=== PATIENT | female | born 1990 | race Caucasian/White ===

== ENCOUNTER 2018-02-14 09:03 | Emergency (ER) | payer MEDICAID, SELFPAY ==
[2018-02-14 09:04] VITALS: BP 141/91; PULSE 112; RESP 18; TEMP 38.2; O2SAT 99; BMI 28.5
--- NOTE | 2018-02-14 09:23 | ED.DCSUM_ITS ---
- ER Visit Summary Date of Service: 02/14/18 Chief Complaint: Fever, ear pain History of Present Illness: The patient is a 28 F who woke this morning with body aches, bilateral ear pain, fever to 102. Patient did not yet take anything for fever. She states she felt fine yesterday. She does complain of mild sore throat. She denies cough. She denies abdominal pain but has had some mild nausea. No vomiting or diarrhea. Physical Examination: Blood pressure is 141/91, temperature 100.8 TA, heart rate 112, respiratory rate 18, pulse ox 99% on room air. Patient's lying in bed in no acute distress. She appears ill but not toxic. Head neck examination feels TMs to be dull bilaterally. She has 1+ tonsils with mild posterior pharyngeal drainage. She is a strong voice and is tolerating secretions well. She has no meningismus. Heart is regular rate and rhythm. Lung sounds are clear. Abdomen is soft nontender. Skin examination reveals no rash or lesions. Test Results: Rapid influenza swab is negative. Rapid strep is positive. Emergency Department Course and Treatment: Patient was initially given Naprosyn and Zofran p.o. She vomited the medications up shortly after taking them. She was then given Toradol IM, Zofran IM, and Fioricet. She states she normally takes Excedrin for headaches. Test results were discussed with the patient. She is elected for Bicillin LA injection rather than oral antibiotics. Patient be discharged with prescription for Zofran ODT. Treatment Plan: [] Disposition: Discharge Impression: Strep pharyngitis This note was generated with [employer] dictation software. It may contain incorrect words, spelling, and punctuation that were not noted in review of the chart prior to signing ED Disposition - Plan for ED Patient: Chief Complaint: Fever Referrals: Care Physician,No Primary [Primary Care Provider] -
[2018-02-14] MEDS: Naproxen 500 MG Tablet PO (09:42)
[2018-02-14] MEDS: Ondansetron ODT 4 MG Tablet PO (09:42)
[2018-02-14] MEDS: Ketorolac 60 MG/2 ML Vial IM (10:29)
[2018-02-14] MEDS: Ondansetron 4 MG/2 ML Vial IM (10:30)
[2018-02-14] MEDS: Penicillin G Benzathine 1.2 MU/2 ML Syringe IM (11:49)
--- NOTE | 2018-02-14 12:07 | ED.DEP ---
ED Disposition - Plan for ED Patient: Disposition: Home or Assisted Living Chief Complaint: Fever Instructions: ED Strep Pharyngitis Conf Prescriptions: Ondansetron [Zofran Odt] 4 mg PO Q8H PRN PRN #10 tablet PRN Reason: Nausea Referrals: Agapito Cohen DO [STAFF PHYSICIAN] - As Needed
[2018-02-14] MEDS: Acetaminophen/Butalbital/Caffe 1 Tablet 2 TABLET PO (12:14)
[2018-02-14 13:28] VITALS: BP 119/78; PULSE 81; RESP 18; O2SAT 100
== END 2018-02-14 13:30 | disposition home or self-care (01) ==
PROVIDERS: Emergency Provider Emergency Medicine
DX: J02.0 Streptococcal pharyngitis (principal)
CPT/HCPCS: 87804; 87880; 96372; 99283; J2405

== ENCOUNTER 2019-03-01 19:14 | Observation (INO) | payer MEDICAID, SELFPAY ==
[2019-03-01 19:14] VITALS: BP 126/86; PULSE 82; RESP 16; TEMP 36.9; O2SAT 99; BMI 33.2
[2019-03-01 20:21] LABS: Absolute Lymphocyte Count 1.58 X10^3/ul (0.83-4.51); Basophil# 0.02 X10^3/uL; Basophil% 0.2 % (0-1); Eosinophil# 0.12 X10^3/uL; Eosinophils% 1.1 % (0-5); Hematocrit 33.4 % (37-47); Lymphocyte # 1.58 X10^3/ul (4.0); Lymphocyte % 15.1 % (19-41); Mean Corp Hgb Conc 32.9 g/gl (32-36); Mean Corpuscular Hgb 26.3 pg (27.0-32.0); Mean Corpuscular Volume 79.7 fL (81-99); Mean Platelet Vol. 11.4 fl (6.2-12.0); Monocyte# 0.67 X10^3/uL; Monocyte% 6.4 % (0-10); Neutrophil # 8.03 X10^3/uL (2.7-7.7); Platelet Count 253 K/mm3 (150-450); RBC Distribution Width CV 14.7 % (11.6-14.6); RBC Distribution Width SD 42.4 fl (35.1-43.9); Red Blood Count 4.19 M/mm3 (4.2-5.4); White Blood Count 10.4 K/mm3 (4.4-11.0)
[2019-03-01 20:22] LABS: POSITIVE COUNT NO; POSITIVE DIFFERENTIAL NO; POSITIVE MORPHOLOGY NO
[2019-03-01 20:23] LABS: Bacteria 0 SEEN /hpf (None Seen); Mucous, Urine 0 SEEN /hpf (<or=2+); Red Blood Cells-Urine 0 SEEN /hpf (0-5); White Blood Cells 0 SEEN /hpf (0-5)
[2019-03-01 20:24] LABS: Internal QC Validated? YES +Cl - CLEAR BKGD; Pregnancy, Serum, hCG Quali. NEGATIVE Negative
[2019-03-01 20:25] LABS: Color, Urine Straw (Yellow); Glucose, Dipstick Normal (Normal); Ketone-Dipstick Negative (Negative); Leukocyte Esterase-Dipstick Negative /ul (Negative); Nitrite-Dipstick Negative (Negative); Occult Blood-Urine Negative /ul (Negative); Protein-Dipstick Negative (Negative); Specific Gravity, Urine 1.005 (1.002-1.030); Urine Bilirubin Dipstick Negative (Negative); Urine Clarity Clear (Clear); Urine Urobilinogen Normal (Normal); Urine pH 6.5 (5.0 - 8.0)
[2019-03-01 20:30] LABS: Anion Gap 6 (5-15); BUN 19 mg/dL (7-18); BUN/Creat Ratio 20.8 RATIO (10-20); Calcium,Total 8.9 mg/dL (8.5-10.1); Chloride 104 mmol/L (98-107); Creatinine, Serum 0.91 mg/dL (0.55-1.02); EST Glomerular Filtration Rate 79 mL/min (>60); Est Glom Filt Rate - Afr Amer 95 mL/min (>60); Glucose 80 mg/dL (74-106); Potassium 3.4 mmol/L (3.5-5.1); Sodium Level 138 mmol/L (136-145)
[2019-03-01 20:32] LABS: Squamous Epithelial Cells - UA 0-5 SEEN /hpf (5-10)
--- NOTE | 2019-03-01 20:50 | CT_ITS ---
STUDY: CT ABDOMEN AND PELVIS WITH CONTRAST REASON FOR EXAM: Female, 29 years old. Right lower quadrant pain since this a.m. RADIATION DOSAGE (If Supplied By Facility): CTDIvol = ( 11.45 ) mGy, DLP = ( 623.63 ) mGycm TECHNIQUE: Transaxial images were obtained from the dome of the diaphragm to the symphysis pubis without oral contrast. 100ML IV Isovue 300 was administered. Sagittal and coronal images were reconstructed. Individualized dose optimization techniques were used for this CT. COMPARISON: None. FINDINGS: The visualized lung bases are unremarkable. The visualized portions of the heart are within normal limits. Normal liver. Normal gallbladder and extrahepatic biliary system. Normal spleen. Normal pancreas. Normal bilateral adrenal glands. Normal right kidney. Normal left kidney. Normal visualized stomach. Normal small intestine. Normal colon. There is a tubular, thick-walled appendix (>7mm) (series 601 image 37)., consistent with acute appendicitis. Normal abdominal aorta. Normal inferior vena cava. Normal retroperitoneum. Normal urinary bladder. Normal visualized uterus and retroflexed.. There is a small umbilical hernia containing fat. Normal osseous structures. CT/Abdomen/Pelvis W IV Cont ONLY IMPRESSION: 1. There is a dilated appearance of the appendix measuring greater than 7 mm with no evidence of surrounding abscess concerning for early acute appendicitis in the appropriate clinical setting. Recommend general surgery consultation for further assessment and management. N.B. : The above information has been verbally conveyed by Gamaliel Bruno DO to Aashish Vidal MD, on 03/01/2019 21:42:36 (ET). Electronically Signed: Gamaliel Bruno DO at 21:43 EDT , Service support ,
--- NOTE | 2019-03-01 21:21 | ED.VIS.GEN ---
History of Present Illness Chief Complaint: Abd Pain Informant: Patient Narrative: Right-sided abdominal pain after awakening 7 AM this morning. However pain worsened over the past 5 6 hours. Decreased appetite. No vomiting or diarrhea. Patient does have history of constipation normal bowel moods every 3 to 4 days. States she had a normal bowel movement yesterday. Last menstrual period 2 weeks ago. No fevers. Patient drove herself here states car ride made it worse. Movement makes it worse. No history of ovarian cysts. Prior similar symptoms: No Past Medical History - Allergies and Home Meds Allergies/Adverse Reactions: Allergies No Known Allergies Allergy (Verified 03/01/19 19:16) Smoking Status: Never smoker Review of Systems General: Denies: Chills, Fever, Sweats Eyes: Denies: Visual changes - bilaterally, Diplopia ENT: Denies: Rhinorrhea, Sore throat Cardiovascular: Denies: Chest pain, Palpitations Respiratory: Denies: Dyspnea, Cough, Dyspnea on exertion Gastrointestinal: Reports: Abdominal pain. Denies: Nausea, Vomiting, Diarrhea, Melena, Hematochezia Genitourinary: Denies: Dysuria, Hematuria, Frequency Musculoskeletal: Denies: Back pain, Extremity Pain Skin: Denies: Rash, Wounds Neurological: Denies: Headache, Weakness, Numbness Physical Exam Vital Signs/Narrative: Vital Signs Temp Pulse Resp BP Pulse Ox 03/01/19 19:14 98.4 F 82 16 126/86 H 99 Inital Vital Signs reviewed: Yes General: Well nourished, Well developed, No Acute Distress Head: Normocephalic, Atraumatic Eyes: Perrl, EOMI ENT: Moist mucous membranes, No rhinorrhea Neck: Supple, Nontender Cardiovascular: Regular rate, Regular rhythm, No murmurs Respiratory: No distress, CTA bilaterally, Chest nontender Abdomen: Soft, Nondistended, Normal bowel sounds, Guarding, Rebound tenderness, - - Negative Davis's, positive McBurney's. Back: Nontender, Normal Inspection Extremities: Nontender, No edema Skin: Normal color, No rash Neurological: Alert, Oriented x3, Cranial nerves II-XII grossly intact, Normal Strength, Normal Sensation Psychological: Normal affect, Normal Mood Diagnostic/Tx/Re-eval CT abdomen pelvis with IV contrast: Discussed with radiology report over the phone 8 to 9 mm dilated appendix with concerns for early appendicitis. Abnormal Lab Results 03/01/19 03/01/19 03/01/19 20:04 20:04 20:04 WBC 10.4 RBC 4.19 L Hgb 11.0 L Hct 33.4 L MCV 79.7 L MCH 26.3 L MCHC 32.9 RDW 14.7 H RDW Differential 42.4 Plt Count 253 MPV 11.4 Immature Gran % (Auto) 0.200 Neut % (Auto) 77.0 H Lymph % (Auto) 15.1 L [place] % (Auto) 6.4 Eos % (Auto) 1.1 Baso % (Auto) 0.2 Absolute Neuts (auto) 8.0 H Absolute Lymphs (auto) 1.58 Total Counted Not Reportable Sodium 138 Potassium 3.4 L Chloride 104 Carbon Dioxide 28.0 Anion Gap 6 BUN 19 H Creatinine 0.91 Estim Creat Clear Calc 66.70 Est GFR (MDRD) Af Amer 95 Est GFR (MDRD) Non-Af 79 BUN/Creatinine Ratio 20.8 H Glucose 80 Calcium 8.9 Serum , Qual NEGATIVE Urine Color Urine Clarity Urine pH Ur Specific [place] Urine Protein Urine Glucose (UA) Urine Ketones Urine Occult Blood Urine Nitrite Urine Bilirubin Urine Urobilinogen Ur Leukocyte Esterase Urine RBC Urine WBC Ur Squamous Epith Cells Urine Bacteria Urine Mucus 03/01/19 20:11 WBC RBC Hgb Hct MCV MCH MCHC RDW RDW Differential Plt Count MPV Immature Gran % (Auto) Neut % (Auto) Lymph % (Auto) [place] % (Auto) Eos % (Auto) Baso % (Auto) Absolute Neuts (auto) Absolute Lymphs (auto) Total Counted Sodium Potassium Chloride Carbon Dioxide Anion Gap BUN Creatinine Estim Creat Clear Calc Est GFR (MDRD) Af Amer Est GFR (MDRD) Non-Af BUN/Creatinine Ratio Glucose Calcium Serum , Qual Urine Color Straw Urine Clarity Clear Urine pH 6.5 Ur Specific [place] 1.005 Urine Protein Negative Urine Glucose (UA) Normal Urine Ketones Negative Urine Occult Blood Negative Urine Nitrite Negative Urine Bilirubin Negative Urine Urobilinogen Normal Ur Leukocyte Esterase Negative Urine RBC 0 SEEN Urine WBC 0 SEEN Ur Squamous Epith Cells 0-5 SEEN Urine Bacteria 0 SEEN Urine Mucus 0 SEEN - Medical Decision Making Patient clinically presents with concerns for appendicitis. Patient declines any pain medicines. Patient kept n.p.o. Labs were obtained from triage normal negative . White count normal. Discussed with patient about surgical physician options, she requests [facility]. Dr. Mckenzie is on for [facility]. I spoke with him pending a CT scan at 2155. Results of CT discussed in radiology concerns for early appendicitis. Zosyn started. Dr. Mckenzie will evaluate for planned surgical intervention. 2310: Reevaluation finish antibiotics. Due to moving around pain increase. Will order for morphine and Zofran for symptom control. ED Disposition - Plan for ED Patient: Disposition: Acute Care Hospital [facility] Diagnosis: Acute appendicitis, Right lower quadrant abdominal pain
[2019-03-01] MEDS: 0.9% Normal Saline 1,000 ML 150 ML IV (21:54)
[2019-03-01 21:58] VITALS: BP 121/63; PULSE 78; RESP 16; TEMP 36.7; O2SAT 97; BMI 33.2
[2019-03-01 22:27] LABS: International Normalized Ratio 1.1; Prothrombin Time (Protime)PT. 13.6 SECONDS (11.7-14.9)
[2019-03-01 22:28] LABS: Partial Thromboplast Time 28.3 Seconds (24.1-36.2)
[2019-03-01] MEDS: Morphine 4 MG/ML Syringe IV (23:20)
[2019-03-01] MEDS: Ondansetron 4 MG/2 ML Vial IV (23:20)
[2019-03-01 23:55] VITALS: PULSE 85; RESP 18; O2SAT 97
[2019-03-02] VITALS (10 sets, daily range): BP systolic 107–139; BP diastolic 60–88; PULSE 60–91; RESP 14–18; TEMP 36.6–37.1; O2SAT 93–100; BMI 29.1
[2019-03-02] MEDS: Morphine 4 MG/ML Syringe IV (01:37)
--- NOTE | 2019-03-02 01:52 | HP.PCM_ITS ---
History of Present Illness Date of Admission: 03/02/19 Chief Complaint: RLQ pain The patient is a 29 year old F with a one day history of right lower quadrant pain. Her pain started in the right lower quadrant and has stayed in the right lower quadrant. The pain has become more severe as the day progressed. She denies other complaints. She presented to the [facility] ER. WBC was upper limit of normal. CT scan read as a dilated appendix consistent with appendicitis. My review was also possibly a right ovarian cyst. Past Medical History Allergies No Known Allergies Allergy (Verified 03/01/19 19:16) Home Medications: Ambulatory Orders Medication Instructions Recorded Cyanocobalamin [Vitamin B12] 1,000 mcg PO DAILY@0800 03/01/19 Lactobacillus Acidophilus 1 each PO DAILY 03/01/19 [Probiotic] Magnesium 30 mg PO DAILY 03/01/19 Multivitamin with Minerals 1 each PO DAILY 03/01/19 [Multiple Vitamin] Thiamine HCl [Vitamin B-1] 100 mg PO DAILY 03/01/19 Surgical History: no surgical history Smoking Status: Never smoker Review of Systems Constitutional: Reports: Anorexia. Denies: Chills, Fever, Weight Change HEENT: Denies: Head Aches, Sinus Congestion, Sinus Drainage Cardiovascular: Denies: Chest Pain, Palpitations Respiratory: Denies: Cough, Shortness of breath at rest, Sputum production Gastrointestinal: Reports: Abdominal Pain. Denies: Nausea, Vomiting Genitourinary: Denies: Dysuria Musculoskeletal: Denies: Joint Pain, Joint Tenderness Skin: Denies: Rash, Wounds Neurological: Denies: Numbness, Tingling, Focal weakness Psychiatric: Denies: Anxiety, Depression, Homicidal Ideations, Suicidal Ideations Hematologic/ Lymphatic: Denies: Easy Bruising, Easy Bleeding VTE Information - Inpt Only VTE Present on Admission: No VTE Mechan Device Prophylaxis: SCD's VTE Pharm Prophylaxis ordered?: No Patient Problems: Active and Suspected Problems Acute appendicitis (Acute) Right lower quadrant abdominal pain (Acute) - Physical Exam General: Alert, Oriented x3, Cooperative HEENT: Atraumatic, PERRLA, EOMI, Normocephalic Neck: Supple, No JVD, Negative Carotid Bruits Lungs: Clear to auscultation, Normal air movement Cardiovascular: Regular rate, No murmurs Abdomen: Bowel Sounds Present, Soft, Tender - RLQ Extremities: No edema, Capillary Refill Less than 3 Seconds Skin: No rashes, No breakdown Musculoskeletal: No Tenderness to Palpation of Joints or Extremities Neurological: Cranial nerves II-XII grossly intact Psych/Mental Status: Normal Affect, Appropriate Vital Signs Temp Pulse Resp BP Pulse Ox 98.0 F 78 18 136/88 H 99 03/01/19 21:58 03/02/19 01:21 03/02/19 01:21 03/02/19 01:21 03/02/19 01:21 Oxygen Delivery Method Room Air Weight: 77.111 kg Body Mass Index (BMI) 33.2 Laboratory Tests Past 24 Hrs 03/01/19 03/01/19 03/01/19 20:04 20:04 20:04 WBC 10.4 RBC 4.19 L Hgb 11.0 L Hct 33.4 L MCV 79.7 L MCH 26.3 L MCHC 32.9 RDW 14.7 H RDW Differential 42.4 Plt Count 253 MPV 11.4 Immature Gran % (Auto) 0.200 Neut % (Auto) 77.0 H Lymph % (Auto) 15.1 L [place] % (Auto) 6.4 Eos % (Auto) 1.1 Baso % (Auto) 0.2 Absolute Neuts (auto) 8.0 H Absolute Lymphs (auto) 1.58 Total Counted Not Reportable PT INR APTT Sodium 138 Potassium 3.4 L Chloride 104 Carbon Dioxide 28.0 Anion Gap 6 BUN 19 H Creatinine 0.91 Estim Creat Clear Calc 66.70 Est GFR (MDRD) Af Amer 95 Est GFR (MDRD) Non-Af 79 BUN/Creatinine Ratio 20.8 H Glucose 80 Calcium 8.9 Serum , Qual NEGATIVE Urine Color Urine Clarity Urine pH Ur Specific [place] Urine Protein Urine Glucose (UA) Urine Ketones Urine Occult Blood Urine Nitrite Urine Bilirubin Urine Urobilinogen Ur Leukocyte Esterase Urine RBC Urine WBC Ur Squamous Epith Cells Urine Bacteria Urine Mucus 03/01/19 03/01/19 20:11 21:50 WBC RBC Hgb Hct MCV MCH MCHC RDW RDW Differential Plt Count MPV Immature Gran % (Auto) Neut % (Auto) Lymph % (Auto) [place] % (Auto) Eos % (Auto) Baso % (Auto) Absolute Neuts (auto) Absolute Lymphs (auto) Total Counted PT 13.6 INR 1.1 APTT 28.3 Sodium Potassium Chloride Carbon Dioxide Anion Gap BUN Creatinine Estim Creat Clear Calc Est GFR (MDRD) Af Amer Est GFR (MDRD) Non-Af BUN/Creatinine Ratio Glucose Calcium Serum , Qual Urine Color Straw Urine Clarity Clear Urine pH 6.5 Ur Specific [place] 1.005 Urine Protein Negative Urine Glucose (UA) Normal Urine Ketones Negative Urine Occult Blood Negative Urine Nitrite Negative Urine Bilirubin Negative Urine Urobilinogen Normal Ur Leukocyte Esterase Negative Urine RBC 0 SEEN Urine WBC 0 SEEN Ur Squamous Epith Cells 0-5 SEEN Urine Bacteria 0 SEEN Urine Mucus 0 SEEN Assessment/Plan All Active Problems Acute appendicitis (Acute) Right lower quadrant abdominal pain (Acute) RLQ pain - appendicitis versus ovarian cyst Given the CT scan findings, I plan to perform a laparoscopic appendectomy. The patient understands the risks, benefits, alternatives including the possibility that we will find a right ovarian cyst. SHe understands and consents to the procedure. We will given Yue, SCDs
--- NOTE | 2019-03-02 02:00 | APP_PTH ---
PATIENT: YOHANA DARLING LOC: MS2 U#:[id number] AGE/SX: 29/F ROOM: MS211 RE03/02/[address]: Dr. Deep Mckenzie MD : 1990 BED: 1 DIS: 03/02/2019 SPEC #: [id number] RECD: 03/02/19 08:06 STATUS: DI REQ #: [id number] ADITI: 03/02/19 02:[address]: Deep Mckenzie DEPT: SURGICAL PATHOLOGY RECD BY: Philippe Harris ENTERED: 03/02/19 14:25 SP TYPE: APPENDIX OTHR DR: No Primary Care Phys Tissues: Appendix, NOS Procedures: Surgery Specimen Level III HEADER OPERATION: Laparoscopic appendectomy PRE-OP DIAGNOSIS: Right lower quadrant pain TISSUE SUBMITTED: Appendix MICROSCOPIC DIAGNOSIS Appendix, appendectomy: Early acute appendicitis. AM:amari 03/05/19 MICROSCOPIC DESCRIPTION Slides are reviewed. GROSS DESCRIPTION Received is one container labeled with the patient's name and designated appendix. The specimen consists of an appendix measuring 6.5 cm in length and up to 0.7 cm in diameter. No obvious perforation is identified. Endodontic Assistant sections are submitted in one cassette. / AM:amari 03/02/19 TC:2 CPT: 54586
[2019-03-02] MEDS: Bupivacaine Mpf 0.5% 30 ML VIAL (03:38)
--- NOTE | 2019-03-02 03:43 | OP.PCM_ITS ---
Report of Operation Date of Procedure: 03/02/19 Pre-Operative Diagnosis: RLQ pain, appendicitis per CT scan, ? right ovarian cyst Post-Operative Diagnosis: RLQ pain, appendicitis, normal right ovary Surgery/Procedure Performed:: laparoscopic appendectomy Description of Surgical Findings:: The patient was brought to the operating suite. Sign in was performed verifying patient, site, procedure, position, and DVT prophylaxis with SCDs. Patient received 4.5 g Zosyn for presumed appendicitis. Following induction of general anesthetic. The patient?s abdomen was prepped and draped in the usual fashion. Timeout was performed verifying patient, site, position. Local anesthetic was injected below the umbilicus. Incision made and dissection carried down to the umbilical root fascia. 2 stay sutures were placed. Incision made in the fascia, the peritoneum entered under direct visualization. A 10 mm [place] trocar was inserted and secured with the stay sutures. Pneumoperitoneum to 15 mmHg was insufflated. 2 5mm ports were placed in the standard position. Visual inspection revealed turbid fluid in the pelvis and right lower quadrant with a inflamed appendix with more edematous than erythema area. The right adnexa was unremarkable. A window was made between the base the mesoappendix and the base of the appendix transected with the intestinal load Endo PRAVIN stapler at the base of the cecum. The mesoappendix was transected with a harmonic scalpel. The appendix was placed in an Endobag and removed through the umbilical port site. An 0 PDS [id number] suture was placed around the umbilical port site defect. Pneumoperitoneum was reestablished. The appendiceal area was checked for hemostasis. 5mm ports were removed under direct visualization with no signs of bleeding. Pneumoperitoneum was released. The De [place] trocar was removed. The umbilical fascial suture was secured area did skin was closed with interrupted 4-0 Monocryl subcuticular sutures. Steri-Strips and bandages were applied. The patient was brought to recovery room in stable condition. rheumatology nurse: None Type of Anesthesia:: General Anesthesiologist: Jerman Salazar Specimen's removed: appendix Drains: none Estimated Blood Loss (mL): 10 Fluids Replaced: 400 - Admit VTE Documentation VTE Present on Admission: No VTE Mechan Device Prophylaxis: SCD's VTE Pharm Prophylaxis ordered?: No
--- NOTE | 2019-03-02 03:48 | DCINST_ITS ---
Discharge Diet: Light diet - advance as tolerated Discharge Activity: May Not Drive - for 3-5 days or while taking narcotic pain meds. May shower in (days): 1 Suture Line Care: Avoid Pulling/Pushing, Avoid Pinching/Bending Additional Dressing/Incision Instructions:: Keep dressing clean and dry. Change or remove dressing in 2 days. Leave steri strips for 1 week. May protect with a gauze bandaid. Medications to take at Discharge Cyanocobalamin [Vitamin B12] 1,000 mcg PO DAILY@0800 03/01/19 Lactobacillus Acidophilus [Probiotic] 1 each PO DAILY 03/01/19 Magnesium 30 mg PO DAILY 03/01/19 Multivitamin with Minerals [Multiple Vitamin] 1 each PO DAILY 03/01/19 Thiamine HCl [Vitamin B-1] 100 mg PO DAILY 03/01/19 Oxycodone HCl/Acetaminophen [Percocet 5/325] 1 tab PO Q4H PRN PRN 7 Days #12 tab 03/02/19 Allergies/Adverse Reactions: Allergies No Known Allergies Allergy (Verified 03/01/19 19:16) The following prescriptions were given: Oxycodone HCl/Acetaminophen [Percocet 5/325] 1 tab PO Q4H PRN PRN 7 Days #12 tab PRN Reason: Pain Primary Care Physician: Care Physician,No Primary [Primary Care Provider] - Test Results: Test results from this visit will be discussed in further detail at your follow- up appointment, if applicable. Please Follow Up With: Deep Mckenzie MD - [phone] When: Call to make a follow up appointment in 1 week.
[2019-03-02] MEDS: 0.9% Normal Saline 1,000 ML 150 ML IV (04:17)
[2019-03-02] MEDS: Morphine 2 MG/ML Syringe IV ×2 (05:15→06:52)
[2019-03-02] MEDS: Ibuprofen 400 MG Tablet PO (05:23)
--- NOTE | 2019-03-02 09:36 | PCM.DC.SUM ---
Discharge Date and Diagnosis - Problem List Patient Problems: Active and Suspected Problems Acute appendicitis (Acute) Right lower quadrant abdominal pain (Acute) Date of Admission: 03/02/19 Date of Discharge: 03/02/19 - Primary Discharge Diagnosis Active and Suspected Problems Acute appendicitis (Acute) Right lower quadrant abdominal pain (Acute) Hospital Course and Treatment Operations: appendectomy Summary of Care Provided: The patient is a 29 year old F with a one-day history of starting in the right and staying in the right lower quadrant pain. CT scan demonstrated a thickened appendix without obvious inflammation around it and possible right adnexal swelling. The patient was taken for laparoscopic exploration/appendectomy. She was found of acute cholecystitis and normal appearing adnexa. The patient received 3 doses of Zosyn. She was doing well with her pain controlled with oral analgesics and was able to be discharged to home on postoperative day 0. Patient Problems: Active and Suspected Problems Acute appendicitis (Acute) Right lower quadrant abdominal pain (Acute) - Physical Exam General: Alert, Oriented x3, Cooperative HEENT: Atraumatic, PERRLA, EOMI, Normocephalic Neck: Supple, No JVD, Negative Carotid Bruits Lungs: Clear to auscultation, Normal air movement Cardiovascular: Regular rate, No murmurs Abdomen: Bowel Sounds Present, Soft, Tender - at incisions, no intra-abdominal right lower quadrant tenderness currently Extremities: No edema, Capillary Refill Less than 3 Seconds Skin: No rashes, No breakdown Musculoskeletal: No Tenderness to Palpation of Joints or Extremities Neurological: Cranial nerves II-XII grossly intact Psych/Mental Status: Normal Affect, Appropriate Vital Signs Temp Pulse Resp BP Pulse Ox 98.3 F 82 16 114/64 98 03/02/19 08:59 03/02/19 08:59 03/02/19 08:59 03/02/19 08:59 03/02/19 08:59 Oxygen Delivery Method Room Air Weight: 79.5 kg Body Mass Index (BMI) 29.1 Intake and Output for Last 24 Hours 02/28/19 03/01/19 03/02/19 23:59 23:59 23:59 Intake Total 1100 / 1100 Output Total 450 / 450 Balance 650 / 650 Laboratory Tests Past 24 Hrs 03/01/19 03/01/19 03/01/19 20:04 20:04 20:04 WBC 10.4 RBC 4.19 L Hgb 11.0 L Hct 33.4 L MCV 79.7 L MCH 26.3 L MCHC 32.9 RDW 14.7 H RDW Differential 42.4 Plt Count 253 MPV 11.4 Immature Gran % (Auto) 0.200 Neut % (Auto) 77.0 H Lymph % (Auto) 15.1 L [place] % (Auto) 6.4 Eos % (Auto) 1.1 Baso % (Auto) 0.2 Absolute Neuts (auto) 8.0 H Absolute Lymphs (auto) 1.58 Total Counted Not Reportable PT INR APTT Sodium 138 Potassium 3.4 L Chloride 104 Carbon Dioxide 28.0 Anion Gap 6 BUN 19 H Creatinine 0.91 Estim Creat Clear Calc 66.70 Est GFR (MDRD) Af Amer 95 Est GFR (MDRD) Non-Af 79 BUN/Creatinine Ratio 20.8 H Glucose 80 Calcium 8.9 Serum , Qual NEGATIVE Urine Color Urine Clarity Urine pH Ur Specific [place] Urine Protein Urine Glucose (UA) Urine Ketones Urine Occult Blood Urine Nitrite Urine Bilirubin Urine Urobilinogen Ur Leukocyte Esterase Urine RBC Urine WBC Ur Squamous Epith Cells Urine Bacteria Urine Mucus 03/01/19 03/01/19 20:11 21:50 WBC RBC Hgb Hct MCV MCH MCHC RDW RDW Differential Plt Count MPV Immature Gran % (Auto) Neut % (Auto) Lymph % (Auto) [place] % (Auto) Eos % (Auto) Baso % (Auto) Absolute Neuts (auto) Absolute Lymphs (auto) Total Counted PT 13.6 INR 1.1 APTT 28.3 Sodium Potassium Chloride Carbon Dioxide Anion Gap BUN Creatinine Estim Creat Clear Calc Est GFR (MDRD) Af Amer Est GFR (MDRD) Non-Af BUN/Creatinine Ratio Glucose Calcium Serum , Qual Urine Color Straw Urine Clarity Clear Urine pH 6.5 Ur Specific [place] 1.005 Urine Protein Negative Urine Glucose (UA) Normal Urine Ketones Negative Urine Occult Blood Negative Urine Nitrite Negative Urine Bilirubin Negative Urine Urobilinogen Normal Ur Leukocyte Esterase Negative Urine RBC 0 SEEN Urine WBC 0 SEEN Ur Squamous Epith Cells 0-5 SEEN Urine Bacteria 0 SEEN Urine Mucus 0 SEEN Discharge Diet: Light diet - advance as tolerated Discharge Activity: May Not Drive - for 3-5 days or while taking narcotic pain meds. May shower in (days): 1 Suture Line Care: Avoid Pulling/Pushing, Avoid Pinching/Bending Additional Dressing/Incision Instructions:: Keep dressing clean and dry. Change or remove dressing in 2 days. Leave steri strips for 1 week. May protect with a gauze bandaid. Home Medications: Medications to take at Discharge RX: Cyanocobalamin [Vitamin B12] 1,000 mcg PO DAILY@0800 03/01/19 RX: Lactobacillus Acidophilus [Probiotic] 1 each PO DAILY 03/01/19 RX: Magnesium 30 mg PO DAILY 03/01/19 RX: Multivitamin with Minerals [Multiple Vitamin] 1 each PO DAILY 03/01/19 RX: Thiamine HCl [Vitamin B-1] 100 mg PO DAILY 03/01/19 Oxycodone HCl/Acetaminophen [Percocet 5/325] 1 tab PO Q4H PRN PRN 7 Days #12 tab 03/02/19 Following Prescrptions Were Given to Patient: Oxycodone HCl/Acetaminophen [Percocet 5/325] 1 tab PO Q4H PRN PRN 7 Days #12 tab PRN Reason: Pain Primary Care Physician: Care Physician,No Primary [Primary Care Provider] - Please Follow Up With: Deep Mckenzie MD - [phone] When: Call to make a follow up appointment in 1 week. Medical Necessity - Tobacco Use Smoking Status: Never smoker Meaningful Use Info Meaningful Use Diagnoses (Choose all that apply): None applicable
[2019-03-02] MEDS: oxyCODONE 5 MG Tablet PO ×2 (10:07→12:09)
--- NOTE | 2019-03-02 13:27 | CASEMGMT ---
Social Work Note Pt is listed as self-pay. Pt was discharged before this worker could meet with pt regarding self-pay status. Per PFS notes, Pt states that she has insurance through [employer] but per PFS pt isn't eligible for [employer] or Medicaid. Pt states that she is self-employed and has been in contact with S in regards to insurance. [facility]. Pia Pennington CONTAINER FILLER, CLINICAL ATHLETIC INSTRUCTOR
== END 2019-03-02 12:50 | disposition home or self-care (01) ==
LOC: ED 22:17 → SDC 22:19 → AC 22:20 → MS2 03-02 02:08 → SDC 03-02 07:54
PROVIDERS: Admitting Provider Surgery; Emergency Provider Emergency Medicine; Visit Provider Surgery
PROC: 0DTJ4ZZ Resection of Appendix, Percutaneous Endoscopic Approach (ICD-10-PCS; CPT 44970; principal; 2019-03-02 02:00)
DX: K35.80 Unspecified acute appendicitis (principal)
CPT/HCPCS: 00840; 44970; 74177; 80048; 81001; 84703; 85025; 85610; 85730; 88304; 96361; 96365; 96366; 96375; 96376; 99281; J7030; J7120; Q9967; A4216; J2405

== ENCOUNTER 2020-04-30 23:37 | Emergency (ER) | payer MEDICAID, SELFPAY ==
[2019-03-02 05:00] VITALS: BMI 29.1
[2020-04-30 23:38] VITALS: BP 142/49; PULSE 79; RESP 18; TEMP 36.2; O2SAT 95; BMI 29.9
--- NOTE | 2020-04-30 23:53 | ED.VIS.LOWEX ---
History of Present Illness Chief Complaint: Lower Extremity Injury Informant: Patient Occurred: Hours - several Mechanism/Context: Injury - stubbed L great toe on a rock while canoeing Context: Sudden Onset Timing: Continuous Quality of Pain: Aching Location: left great toe and proximally into midfoot Current Severity: Severe Maximum Severity: Severe Worsened by: moving, walking on it Relieved by: remaining still Associated Symptoms: Negative for: Parasthesia, Weakness, Loss of Funtion Narrative: Jammed her toe, denies any bleeding. She thinks she chipped a little piece of the nail off. Patient pulls a Band-Aid off to show me, she states she placed it on hoping it would help with the pain but denies any wound or bleeding. States she [place]. Denies any other injury. Able to ambulate. Past Medical History - Allergies and Home Meds Allergies/Adverse Reactions: Allergies No Known Allergies Allergy (Verified 04/30/20 23:39) Primary Care Physician: Care Physician,No Primary [Primary Care Provider] - Past Medical History: None Surgical History: appendectomy Smoking Status: Never smoker Review of Systems General: Denies: Chills, Fever, Sweats Musculoskeletal: Reports: Extremity Pain Skin: Denies: Rash, Wounds Neurological: Denies: Headache, Weakness, Numbness Physical Exam Vital Signs/Narrative: Vital Signs Temp Pulse Resp BP Pulse Ox 04/30/20 23:38 97.2 F L 79 18 142/49 H 95 Inital Vital Signs reviewed: Yes - Extremity Exam Left Toe: Limited ROM - Great toe due to pain., - - Mildly tender distal phalanx and great toe, MTPJ, and metatarsal. No other midfoot tenderness, no deformity, no obvious evidence of trauma but her nails are painted.. Negative for: Contusion, Deformity, Hematoma General: Well nourished, Well developed, - - NAD Head: Normocephalic, Atraumatic Skin: Normal color, No rash, No Trauma Neurological: Alert, Oriented x3, Cranial nerves II-XII grossly intact, Normal Strength, Normal Sensation Psychological: Normal affect, Normal Mood Diagnostic/Tx/Re-eval Clinical Impression(s) from Imaging Studies Foot X-Ray 05/01/20 00:00 IMPRESSION: Normal x-ray examination of the foot. Electronically Signed: Jaylen Eric MD at 0:25 EDT , Service support , - Medical Decision Making X-rays are negative. We cleansed her foot, gave her Naprosyn, and ice pack, and a postop shoe which should help her walk easier with less pain. Supportive care advised. ED Disposition - Plan for ED Patient: Disposition: Home or Assisted Living Diagnosis: Sprain of left great toe Instructions: ED Sprain Toe Referrals: Sofia Martines DPM [STAFF PHYSICIAN] - 10-14 Days if not better Additional Instructions: Ice to affected area, ibuprofen, and/or Tylenol as needed for pain.
--- NOTE | 2020-05-01 | RAD_ITS ---
STUDY: X-RAY - LEFT FOOT CLINICAL: Female, 30 years old. Trauma to great toe and first metatarsal. TECHNIQUE: 3 view(s) of the foot. COMPARISON: None. FINDINGS: Normal talus, calcaneus, and tarsal bones. Normal visualized subtalar, talonavicular, calcaneocuboid, tarsal and tarsometatarsal articulations. Normal metatarsi. Normal metatarsophalangeal joint of the great toe. Normal tibial and fibular sesamoid bones. Normal interphalangeal joint of the great toe. Normal phalanges of the great toe. Normal second through fifth metatarsophalangeal joints. Normal interphalangeal joints and phalanges of the lesser toes. The soft tissue structures are unremarkable. RAD/Foot min 3 Views IMPRESSION: Normal x-ray examination of the foot. Electronically Signed: Jaylen Eric MD at 0:25 EDT , Service support ,
[2020-05-01] MEDS: Naproxen 500 MG Tablet PO (00:16)
[2020-05-01] MEDS: traMADol 50 MG Tablet PO (01:12)
== END 2020-05-01 01:15 | disposition home or self-care (01) ==
PROVIDERS: Emergency Provider Emergency Medicine
DX: S93.502A Unspecified sprain of left great toe, initial encounter (principal); X58.XXXA Exposure to other specified factors, initial encounter
CPT/HCPCS: 73630; 99284